=== PATIENT | female | born 2000 | race Caucasian/White ===

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

== ENCOUNTER 2022-08-02 13:17 | Emergency (ER) | payer BC ==
[~2022-08-02] VITALS: Ht 170.2 cm; Wt 90.9 kg
[~2022-08-02 13:17] MED LIST changes: +FLEXERIL 1010 MG/TAB PO; +MOTRIN 800800 MG/TAB PO; +NORCO 325 MG-51 TAB PO; +PERCOCET 325 MG1 TA2 PO
[2022-08-02 13:22] VITALS: BP 136/84; PULSE 79; TEMP 98.3
== END 2022-08-02 15:00 | disposition home or self-care (01) ==
LOC: COL.ER 13:17
DX: S61.411A Laceration without foreign body of right hand, initial encounter (principal); F17.290 Nicotine dependence, other tobacco product, uncomplicated; Z23 Encounter for immunization; W27.8XXA Contact with other nonpowered hand tool, initial encounter; Y92.59 Other trade areas as the place of occurrence of the external cause; Y99.0 Civilian activity done for income or pay

== ENCOUNTER 2023-10-15 12:59 | Emergency (ER) | payer BC ==
[~2023-10-15] VITALS: Ht 172.7 cm; Wt 100.0 kg
[2023-10-15 13:03] VITALS: TEMP 97.9
[2023-10-15 14:30] LABS: BASO # 0.1 K/mm3 (0.0-0.2); BASO % 0.9 % (0.0-2.0); EOS # 0.1 K/mm3 (0.0-0.7); EOS % 1.1 % (0.0-4.0); GRAN # 6.3 K/mm3 (1.4-6.5); GRAN % 57.4 % (42.2-75.2); HEMATOCRIT 40.5 % (37.0-47.0); HEMOGLOBIN 13.2 g/dl (12.5-16.0); LYMPH # 3.5 K/mm3 (1.2-3.4); LYMPH % 32.2 % (20.0-51.0); MEAN CELL VOLUME 93 fl (80.0-100.0); MEAN CORPUSCULAR HEMOGLOBIN 30 pg (27-31); MEAN CORPUSCULAR HGB CONC 33 g/dl (33.0-37.0); MONO # 0.9 K/mm3 (0.1-0.6); MONO % 8.2 % (1.7-9.3); PLATELET COUNT 344 K/mm3 (130-400); RED BLOOD COUNT 4.34 M/mm3 (4.10-5.30); REDCELL DISTRIBUTION WIDTH-CV 12.6 % (11.5-14.5)
[2023-10-15] MEDS ORDERED: Pantoprazole 40 MG in NS 10 ML IV ONE (14:30)
[2023-10-15] MEDS ORDERED: NS 1,000 ML IV ONE (14:30)
[2023-10-15] MEDS ORDERED: Famotidine 20 MG TAB PO ONE (14:30)
[2023-10-15] MEDS ORDERED: fentaNYL 50 MCG/ML 2 ML VIAL IV ONE (14:30)
[2023-10-15 15:03] LABS: ALBUMIN 4.2 g/dL (3.5-5.0); BILIRUBIN,TOTAL 0.2 mg/dL (0.2-1.2); C-REACTIVE PROTEIN 0.14 mg/dL (0.00-0.50); CALCIUM 9.7 mg/dL (8.4-10.2); CREATININE, serum 0.78 mg/dL (0.57-1.11); MAGNESIUM 2.1 mg/dL (1.6-2.6); POTASSIUM 4.1 mEq/L (3.5-4.5); TOTAL PROTEIN 7.8 g/dl (6.2-8.1)
[2023-10-15 16:18] VITALS: BP 123/75; PULSE 77
== END 2023-10-15 16:18 | disposition home or self-care (01) ==
LOC: COL.ER 12:59
PROVIDERS: Emergency Medicine
DX: R10.11 Right upper quadrant pain (principal); F17.210 Nicotine dependence, cigarettes, uncomplicated; F17.290 Nicotine dependence, other tobacco product, uncomplicated
CPT/HCPCS: J2470; J3010; J7030